=== PATIENT | male | born 1965 | race Caucasian/White ===

== ENCOUNTER 2019-03-17 06:14 | Inpatient (IN) ==
[2019-03-17] MEDS ORDERED: *HR* Midazolam HCl 2 MG/2 ML VIAL ONE (06:40)
[2019-03-17] MEDS ORDERED: *HR* FentaNYL (PF) 100 MCG/2 ML VIAL ONE ×2 (06:40→08:49)
[2019-03-17] MEDS ORDERED: *HR* Propofol 200 MG/20 ML VIAL IVP ONE (06:40)
[2019-03-17] MEDS ORDERED: Lidocaine -MPF 2% 2 ML VIAL ONE ×2 (06:42→09:28)
[2019-03-17] MEDS ORDERED: Lidocaine -MPF 4% 5 ML AMPUL ONE (06:42)
[2019-03-17] MEDS ORDERED: Ondansetron 4 MG/2 ML VIAL ONE (06:42)
[2019-03-17] MEDS ORDERED: *HR* Rocuronium Bromide 50 MG/5 ML VIAL ONE ×2 (06:42→08:46)
[2019-03-17] MEDS ORDERED: Dexamethasone 4 MG/ML VIAL ONE (06:42)
[2019-03-17] MEDS ORDERED: cefOXitin 2,000 MG in Water for inj. (sterile) 20 ML IVP ONE (06:52)
[2019-03-17] MEDS ORDERED: LIDOCAINE 1% PF 2 ML AMPUL ONE ×2 (06:58→07:02)
[2019-03-17] MEDS ORDERED: Ringers Solution, Lactated 1,000 ML IVC SCH ×2 (07:00→07:45)
[2019-03-17] MEDS ORDERED: Acetaminophen IV 1,000 MG/100 ML INFUS..BTL IVPB ONE (07:20)
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
[2019-03-17] MEDS ORDERED: *HR* Meperidine 25 MG/ML SYRINGE IVP PRN (07:38)
[2019-03-17] MEDS ORDERED: *HR* Promethazine 25 MG/ML VIAL IVP PRN (07:38)
[2019-03-17] MEDS ORDERED: Ondansetron 4 MG/2 ML VIAL IVP ONE (07:38)
--- NOTE | 2019-03-17 08:09 | History & Physical Report ---
Date of Encounter: 03/17/19 Time of Encounter: 08:07 24 Hour HP Update - Instructions Instructions: If the History and Physical is less than 30 days old and was completed prior to A.M. admission and or procedure and has NOT been updated on calendar day of procedure please complete this update prior to performing procedure. - Update Patient reports changes in Medical Condition: No Changes in examination, assessment, or condition: No Changes in Medication: No Preop tests/diagnostics Reviewed: Yes Surgery Remains Indicated: Yes Consent for Planned Operative Procedure(s) Verified: Yes
[2019-03-17] MEDS ORDERED: *HR* PHENYLEPHRINE 1,000 MCG/10 ML SYRINGE IVP ONE (08:40)
[2019-03-17] MEDS ORDERED: EPHEDrine 50 MG/ML VIAL ONE (08:58)
[2019-03-17] MEDS ORDERED: Neostigmine Methylsulfate 3 MG/3 ML SYRINGE ONE ×2 (09:26→09:50)
[2019-03-17] MEDS: *HR* HYDROmorphone (PF) 1 MG/ML SYRINGE IVP PRN ×4 (10:18→10:52)
--- NOTE | 2019-03-17 11:11 | Anesthesia Evaluation Post Op ---
Date of Encounter: 03/17/19 Time of Encounter: 11:10 - Vital Signs Vital Signs: Vital Signs/O2 Sat/Glucose, Most Current Temp Pulse Resp BP Pulse Ox 03/17/19 11:06 97.7 F 75 17 128/82 95 03/17/19 10:56 67 22 140/79 94 03/17/19 10:46 71 16 129/91 95 03/17/19 10:36 97.6 F 71 14 134/83 95 03/17/19 10:26 80 12 143/85 96 03/17/19 10:16 77 16 147/88 95 03/17/19 10:06 97.3 F L 71 18 134/82 97 03/17/19 07:13 98.9 F 83 18 132/89 96 - Lungs Lungs: Clear Ascult./Percussion - Airway Airway: Non-obstructed - Cardiovascular Regular Rate - Mental Status Mental Status: Alert & Oriented, Answers Appropriately - Pain Pain Scale: 7 Pain Scale used: Numeric (1 - 10) - Nausea Vomiting Nausea Vomiting: Not Present - Hydration Hydration: NPO, Has not voided - Discharge PostOp Status: Transfer Patient to floor
[2019-03-17] MEDS ORDERED: 0.9 % Sodium Chloride 1,000 ML IVC SCH (11:36)
[2019-03-17] MEDS ORDERED: Ondansetron 4 MG/2 ML VIAL IVP PRN (11:36)
[2019-03-17] MEDS: Ketorolac 15 MG/ML VIAL IVP PRN (15:30)
[2019-03-18] MEDS: Ketorolac 15 MG/ML VIAL IVP PRN (08:45)
--- NOTE | 2019-03-18 12:18 | Operative Note ---
Date of procedure: 03/17/19 Pre-op diagnosis: Splenic mass Post-op diagnosis: same Procedure: Robotic splenectomy Anesthesia: CHUN Surgeon: Som Fox Was there an assistant inventory manager present: Yes Exploration Geologist: Marilia Stark Estimated blood loss (cc): 10 Specimen: Spleen Condition: stable Disposition: same day Procedure in Detail: After informed consent, the patient was taken the operating room placed in a supine position. After adequate sedation and anesthesia the abdomen was prepped and draped. The patient was placed in a modified right lateral decubitus position. The table was then flexed into a modified kidney position. The abdomen was prepped and draped. Incisions were made along the mid abdomen at the level of the umbilicus. 4 individual incisions were performed to allow for one 12 mm cannula and 38 mm cannulas. An additional 5 mm port was placed in left lower quadrant as an assistance port. The robot was Dr. the patient's right hip. The edge rotation was connected. The spleen was easily identified once in place. The omental attachments were taken down with a vessel sealer. The inferior pole of the spleen was encountered first. Multiple small arterial branches were identified. These were taken individually with a vessel sealer. Once the hilum of been completely ligated with the vessel sealer the spleen had 2 additional attachments to the diaphragm. These were taken with the vessel sealer as well. Once this is completed and the spleen was free it was placed in a 15 mm Endobag. It was removed through a counterincision left for quadrant. Once it was delivered it was measured and found to be 15 x 15 x 10 cm. The counter incision fascia was closed in 3 layers with 0 Vicryl suture. The 12 mm cannula site was closed with an 0 Vicryl suture. Skin was closed with monica.
[2019-03-18] MEDS ORDERED: Pneumococcal 23 Valent Vaccine 25 MCG/0.5 ML VIAL IM ONE (15:10)
[2019-03-18] MEDS ORDERED: Tdap (Boostrix) Vaccine 0.5 ML SYRINGE IM ONE (15:10)
[2019-03-18] MEDS ORDERED: Pneumoccal 13-Valent Vaccine 0.5 ML SYRINGE IM ONE (15:10)
[2019-03-18] MEDS ORDERED: *HR* OxyCODONE Immed Rel 5 MG TABLET PO PRN (15:16)
--- NOTE | 2019-03-18 15:40 | General Surgery Progress Note ---
Date of Encounter: 03/18/19 Time of Encounter: 09:00 - Assessment and Plan (1) Splenic mass Current Visit: Yes Status: Acute Date of procedure: 03/17/19 Pre-op diagnosis: Splenic mass Post-op diagnosis: same Procedure: Robotic splenectomy Anesthesia: GETA Surgeon: Som Fox POD #1 as above. Pathology pending. He is in need of inpatient status due to splenectomy, need for closely monitoring for s/s of bleeding, and uncontrolled pain. We will administer part of his asplenia vaccinations [id number], flu, and tDap) we will check for MMR and Varicella titers as patient is unsure if he had vaccines or active disease. He will need to follow-up at his local health department for both meningococcal and the PNA 23 vaccinations and any further needed vaccinations Plan: Continue supportive care and discomfort management while awaiting full return of bowel function Continue G.I. and DVT prophylaxis Incentive spirometry 10 times every hour while awake Out of bed to chair TID, do not offer meal trays while in the bed Activity as tolerated Apply ice 20 minutes on 20 minutes off as needed a.m. labs (2) HTN, goal below 130/80 Current Visit: Yes Status: Acute resume home meds Subjective Patient reports: still having pain (not controlled this am), tolerating liquids well, voiding w/o difficulty, flatus, no bowel movement, afebrile Objective Vital Signs - Last 8 Hours Temp Pulse Resp BP Pulse Ox 03/18/19 10:42 98.1 F 82 17 117/73 92 Intake and Output 03/17/19 03/18/19 03/18/19 23:59 07:59 15:59 Intake Total 120 / 1140 90 / 90 Output Total 600 / 600 500 / 500 Balance -480 / 540 -410 / -410 Intake: Oral 120 / 120 90 / 90 Output: Urine 600 / 600 500 / 500 Other: Meal Dinner Percent of Meal Consumed 0% Weight 112.6 kg Patient Weight 03/18/19 23:59 Weight 112.6 kg - General physical appearance no distress, obese - Eyes normal ocular movement - ENT atraumatic, normocephalic - Neck Neck exam: trachea midline - Respiratory normal expansion, normal respiratory effort - Cardiovascular Cardiovascular exam: Present: RRR - Abdomen Abdomen: Present: bowel sounds present, soft, tender (expected postoperative) Hernia: none - Incision Incision: Present: clean and dry, intact - Integumentary no rash - Neurologic normal sensation - Musculoskeletal normal posture - Psychiatric oriented to time, oriented to person, oriented to place Consult Discharge Plan - Plan Referrals: Som Fox DO [Partnered Physician] - 03/30/19 3:00 pm
[2019-03-18] MEDS: Acetaminophen IV 1,000 MG/100 ML INFUS..BTL IVPB SCH (18:13)
[2019-03-18] MEDS: Ketorolac 15 MG/ML VIAL IVP SCH (23:09)
[2019-03-19] MEDS: Acetaminophen IV 1,000 MG/100 ML INFUS..BTL IVPB SCH ×2 (01:30→06:45)
[2019-03-19 05:51] LABS: Basophils % 0.3 %; Eosinophils # 0.3 K/mcL (0.0-0.6); Eosinophils % 2.4 %; Hematocrit 40.3 % (37.5-50.1); Hemoglobin 13.1 g/dL (12.9-16.9); Immature Granulocytes % 0.3 % (0-4); Lymphocytes # 1.6 K/mcL (0.6-4.6); Lymphocytes % 14.7 %; Mean Corpuscular HGB Conc 32.5 g/dL (31.6-35.5); Mean Corpuscular Hemoglobin 31.7 pg (28.0-33.3); Mean Corpuscular Volume 97.6 fL (83.0-100.0); Mean Platelet Volume 9.9 fL (9.4-12.4); Monocytes # 1.1 K/mcL (0.0-1.3); Monocytes % 9.7 %; Platelet Count 252 K/mcL (140-400); Red Blood Count 4.13 M/mcL (4.19-5.50); Red Cell Distribution Width 12.7 % (11.5-14.5); Segmented Neutrophils % 72.6 %; White Blood Count 11.1 K/mcL (4.3-11.1)
[2019-03-19 06:14] LABS: BUN/Creatinine Ratio 21 (6-26); Blood Urea Nitrogen 21 mg/dL (6-20); Calcium 8.3 mg/dL (8.6-10.3); Carbon Dioxide 26 mEq/L (23-29); Chloride 106 mEq/L (98-107); Glucose 91 mg/dL (70-105); Osmolality,Calculated 287 (280-300); Potassium 4.3 mEq/L (3.5-5.1); Sodium 137 mEq/L (136-145); eGFR For African Americans > 60 (> 60); eGFR For Non-African Americans > 60 (> 60)
[2019-03-19] MEDS: Ketorolac 15 MG/ML VIAL IVP SCH ×2 (06:45→12:54)
[2019-03-19] MEDS ORDERED: *HR* OxyCODONE/APAP 5/325 TABLET PO PRN (09:20)
--- NOTE | 2019-03-19 09:23 | Discharge Summary ---
Orders not resulted at time of discharge: Pending orders 03/03/19 16:40 Red Blood Cells [BBK] Routine 03/17/19 09:48 Surgical Pathology [PTH] Routine 03/19/19 04:58 Mumps Virus IgG Antibody AM 0400 Mumps Virus IgM Antibody AM 0400 Rubella Antibody, IgM AM 0400 Rubella IgG Antibody AM 0400 Rubeola (Measles) IgG AM 0400 Rubeola IgM AM 0400 Varicella Zoster IgG Antibody AM 0400 Date of Encounter: 03/19/19 Time of Encounter: 07:30 - Discharge Diagnosis (1) Splenic mass Priority: Primary Status: Acute (2) HTN, goal below 130/80 Priority: Secondary Status: Acute General Surgery Exam Initial Vital Signs Temp Pulse Resp BP Pulse Ox 98.9 F 83 18 132/89 96 03/17/19 07:13 03/17/19 07:13 03/17/19 07:13 03/17/19 07:13 03/17/19 07:13 Vital Signs Temp Pulse Resp BP Pulse Ox 03/19/19 11:52 98.9 F 79 16 116/73 91 03/19/19 07:57 98.3 F 64 17 128/84 93 03/19/19 04:22 98.5 F 80 14 118/77 90 03/19/19 00:01 98.0 F 79 17 115/78 91 03/18/19 23:08 91 03/18/19 19:58 98.8 F 78 16 119/70 93 03/18/19 16:15 97.9 F 84 17 123/80 92 Intake and Output 03/18/19 03/19/19 03/19/19 23:59 07:59 15:59 Intake Total 220 / 310 200 / 200 Output Total 500 / 500 Balance 220 / -190 -300 / -300 Intake: IV Fluids 100 / 100 200 / 200 Ofirmev 1,000 mg/100 ml 1,000 100 / 100 200 / 200 mg In 100 ml @ 400 mls/hr IVPB Q6HR [facility] Rx#:[id number] Oral 120 / 210 Output: Urine 500 / 500 Other: Meal Dinner Percent of Meal Consumed 100% VITAL SIGNS: Reviewed. See [facility] GENERAL: In no apparent distress. HEENT: Normocephalic, atraumatic, pupils are equal and reactive, extraocular motions intact, oropharynx is pink and moist, there is no neck adenopathy or JVD noted. CHEST/RESPIRATORY: The thorax is free from signs of trauma. Lung sounds: clear to auscultation, normal respiratory effort CARDIAC: Regular rate and rhythm. Normal S1 and S2, without murmurs, gallops, or rubs. VASCULAR: No Edema. 2+ peripheral pulses. ABDOMEN: soft, expected postoperative tenderness, active bowel sounds INCISION: Surgical incision is clean, dry, and intact. There are no signs of cellulitis or infection noted. MUSCULOSKELETAL: Good range of motion of all major joints. Extremities without clubbing, cyanosis or edema. NEUROLOGIC EXAM: Alert and oriented x 3. Speech normal. Follows commands. PSYCHIATRIC: Mood normal. SKIN: No rash or lesions. - Hospital Course Hospital course: Mr. Crain is a 53 year old male who presented on 03/17/2019 for a robotic splenectomy secondary to a splenic mass by Dr. Fox. The patient's hospital course was uncomplicated. He did remain in the hospital for initiation of vaccinations and pain control. He is ambulating and voiding without difficulty, tolerating a diet without nausea or vomiting, vital signs are stable, and he is afebrile. We will begin discharge planning to home with a follow-up in the office in approximately 2 weeks. He has received Prevnar 13 and tDap during this hospital stay. He will need pneumococcal 23 and approximately 8 weeks. He will also need both meningococcal vaccinations. His MMR and carousel a titers are pending. He is aware if those are negative he will also need those vaccinations. Flu vaccination was recommended during his hospital stay but the pharmacist stated that the hospital no longer had the 2019 flu vaccinations. He is recommended to get the 2019/ flu vaccination the first aid is available. - Time Spent with Patient Total time spent providing and/or coordinating discharge services: - Discharge Medications Prescriptions: New Docusate Sodium [Colace] 100 mg PO BID PRN #30 capsule PRN Reason: Contstipation Ibuprofen 800 mg PO Q8H PRN #30 tablet PRN Reason: Postsurgical pain Polyethylene Glycol 3350 [MiraLAX Powder Bulk 17.9 Oz] 1 scoop PO DAILY 30 Days #510 gm OxyCODONE/APAP 5/325 [Percocet 5/325 MG] 1 each PO Q6HR PRN 7 Days #28 tablet PRN Reason: Pain Ondansetron ODT [Zofran ODT] 4 mg SL Q4HR PRN #30 tab.rapdis PRN Reason: Nausea Home Medications: Docusate Sodium [Colace] 100 mg PO BID PRN #30 capsule 03/19/19 [Rx] Ibuprofen 800 mg PO Q8H PRN #30 tablet 03/19/19 [Rx] Ondansetron ODT [Zofran ODT] 4 mg SL Q4HR PRN #30 tab.rapdis 03/19/19 [Rx] OxyCODONE/APAP 5/325 [Percocet 5/325 MG] 1 each PO Q6HR PRN 7 Days #28 tablet 03/19/19 [Rx] Polyethylene Glycol 3350 [MiraLAX Powder Bulk 17.9 Oz] 1 scoop PO DAILY 30 Days #510 gm 03/19/19 [Rx] Allergies/Adverse Reactions: Allergy/AdvReac Type Severity Reaction Status Date / Time No Known Allergies Allergy Unverified 03/17/19 07:01 Date of admission: 03/17/19 12:04 Primary care physician: PCP NONE Consults: 03/17/19 11:50 Consult to Pastoral Services [CONS] Routine Comment: Consult to Administrative Representative [CONS] Routine Reason for SW Consult: financial concerns Discharging clinician: Nga Blackburn Anticipated date of discharge: 03/19/19 Labs on day of discharge: Labs from last 24 hours 03/19/19 03/19/19 04:58 04:54 WBC 11.1 RBC 4.13 L Hgb 13.1 Hct 40.3 MCV 97.6 MCH 31.7 MCHC 32.5 RDW 12.7 Plt Count 252 MPV 9.9 Immature Gran % 0.3 Seg Neutrophils % 72.6 Lymphocytes % 14.7 Monocytes % 9.7 Eosinophils % 2.4 Basophils % 0.3 Neutrophils # 8.0 Lymphocytes # 1.6 Monocytes # 1.1 Eosinophils # 0.3 Basophils # 0.0 Sodium 137 Potassium 4.3 Chloride 106 Carbon Dioxide 26 BUN 21 H Creatinine 0.98 Est GFR ( Amer) > 60 Est GFR (Non-Af Amer) > 60 BUN/Creatinine Ratio 21 Glucose 91 Calculated Osmolality 287 Calcium 8.3 L - Patient Status Disposition: Home, Self-Care Condition: Good Functional capacity at discharge: independent ambulation Overall status at discharge: patient is progressing back to baseline - Discharge Instructions Instructions: Laparoscopic Splenectomy (DC) Follow Up With: Som Fox DO [Partnered Physician] - 03/30/19 3:00 pm Additional Instructions: General Surgical Discharge Instructions 1. No pushing, pulling, or lifting greater than 15 lbs for 6 weeks (depending upon procedure). Leave your dressings in place for the next 24 hours. You can remove dressings prior to your shower tomorrow. You can leave them open to air after that. 2. You may shower beginning today, but no tub baths, soaking, or swimming for 2 weeks. 3. You may resume driving when you are off narcotics and are safe to react in a car. 4. Take ibuprofen every 8 hours for discomfort. If this does not relieve discomfort, you may take the as needed Percocet. Take narcotics as directed. Do not take more narcotics then directed and do not share your narcotics with any other person. Do not drink alcohol while on narcotics. 5. Take stool softeners (Colace) or a water based laxative (Miralax) while taking narcotics. You may hold for loose stools. 6. Report any fevers greater than 100.5F, increase abdominal discomfort, drainage that looks like pus, increased redness or pain at the surgical site, or any vomiting. 7. Report any pain in the calves, shortness of breath, or rapid heartbeat. 8. Follow-up in the office as directed. 9. If you were prescribed antibiotics, do not stop them without talking to your provider. We will notify you of the additional vaccinations that will be required at your follow-up visit. - Diet and Activity Activity: increase activity as tolerated Diet: advance to your usual diet
[2019-03-19 11:54] VITALS: BP 116/73
[2019-03-19 13:25] LABS: Mumps Virus IgG Antibody POSITIVE; Rubella IgG Antibody POSITIVE (POSITIVE); Rubeola (Measles) IgG Negative (POSITIVE); Varicella Zoster IgG Antibody Positive
[2019-03-21 09:49] LABS: Mumps Virus IgM Antibody 0.49 IV (<=0.79)
== END 2019-03-19 14:14 | disposition home or self-care (01) | DRG 801 ==
LOC: SAMDAY 06:14 → 3ANU 12:04
PROVIDERS: ADMIT Surgery; ATTEND Surgery